=== PATIENT | male | born 1985 ===

== ENCOUNTER 2025-02-06 20:11 | Emergency (ER) | payer OTHER ==
[2025-02-06] MEDS: Orphenadrine 60 MG/2 ML Inj IM ONE (21:00)
[2025-02-06] MEDS: Ketorolac 30 MG/ML SDV IVPUSH ONE (21:01)
== END 2025-02-06 22:25 | disposition home or self-care (01) ==
LOC: JD.ED 20:11
DX: M54.50 Low back pain, unspecified (principal)
CPT/HCPCS: 96372; 96374; 96375; 99283; J1171; J1885; J2360